=== PATIENT | female | born 1975 | race Caucasian/White ===

== ENCOUNTER 2019-01-22 14:15 | Emergency (ER) | payer BC ==
[~2019-01-22 14:15] MED LIST: Iopamidol 370 76% 100 ML VIAL ONE
[2019-01-22] MEDS ORDERED: Morphine 4 MG/ML VIAL ONE (14:59)
[2019-01-22] MEDS ORDERED: Sodium Chloride 0.9% 1,000 ML ONE ×2 (14:59→17:21)
[2019-01-22 15:04] LABS: #Basophils 0.1 thou/uL (0.0-0.2); #Eosinphils 0.2 thou/uL (0.0-0.7); #Lymphocytes 3.1 thou/uL (1.20-3.40); #Monocytes 0.5 thou/uL (0.11-0.59); #Neutrophils 4.4 thou/uL (1.40-6.50); %Basophils 0.9 % (0.0-1.0); %Eosinophils 2.3 % (0.0-10.0); %Monocytes 6.5 % (0.0-10.0); %Neutrophils 53.2 % (42.0-75.0); Mean Corpuscular Hemoglobin 30.8 pg (27.0-31.0); Mean Corpuscular Volume 93.4 fL (78.0-98.0); Mean Platelet Volume 6.4 fL (7.4-10.4); Platelet Count 239 thou/uL (130-400); RBC Distribution Width 12.6 % (11.5-14.5); Red Blood Cell (RBC) Count 3.89 mill/uL (4.20-5.40); White Blood Cell (WBC) Count 8.3 thou/uL (4.8-10.8)
[2019-01-22 15:07] LABS: Bilirubin Negative (Negative); Blood, Urine Trace (Negative); Clarity Hazy (Clear); Glucose, Urine (Dipstick) Negative (Negative); Leukocyte Negative (Negative); Nitrite Negative (Negative); Protein, Urine (Dipstick) Negative (Neg-Trace); Urobilinogen 0.2 mg/dL (Less than 2)
[2019-01-22 15:09] LABS: Bacteria/HPF Rare-Few HPF (None Seen); RBC/HPF 0-3 HPF (0-3); Squamous Epithelial 0-3 HPF (0-3); WBC/HPF 0-3 HPF (0-3)
[2019-01-22 15:19] LABS: ALT (SGPT) 28 U/L (8-55); AST (SGOT) 21 U/L (5-34); Alkaline Phosphatase 56 U/L (40-150); Anion Gap 13 mmol/L (10-20); BUN (Urea Nitrogen) 16 mg/dL (7.0-18.7); Bilirubin, Total 0.2 mg/dL (0.2-1.2); Calc. Creatinine Clearance 0 mL/min (70-130); Calcium 8.9 mg/dL (7.8-10.44); Carbon Dioxide 25 mmol/L (22-29); Chloride 108 mmol/L (98-107); Estimated GFR-MDRD 89; Globulin 2.3 g/dL (2.4-3.5); Glucose 77 mg/dL (70-105); Magnesium 1.9 mg/dL (1.6-2.6); Potassium 3.7 mmol/L (3.5-5.1); Protein, Total 6.3 g/dL (6.0-8.3); Sodium 142 mmol/L (136-145)
--- NOTE | 2019-01-22 16:03 | RAD ---
ABDOMEN ONE VIEW: HISTORY: Abdominal pain and distention and fever. COMPARISON: None. FINDINGS: On the upright view, no free air under the hemidiaphragms. No dilated air-filled loops of large or s mall bowel. There are right upper quadrant surgical clips. No abnormal calcification projected over the renal shadows. No acute osseous abnormality. IMPRESSION: No acute radiographic abnormality. POS: CET
--- NOTE | 2019-01-22 17:13 | CT ---
CT ABDOMEN WITH CONTRAST CT PELVIS WITH CONTRAST: DATE: 01/22/2019 HISTORY: 43-year-old female with generalized abdominal pain, fever, nausea, and abdominal distention. TECHNIQUE: IV injection of iodinated contrast media: Administered Oral contrast media:Not administered FINDINGS: Liver: No focal solid mass. Spleen: No splenomegaly.. Pancreas: No mass or surrounding fat stranding.. Adrenals: No mass.. Kidneys: No hydronephrosis or enhancement abnormalities.. Ureters: No dilation. Bladder: No pathology identified. Abdominal aorta: No aneurysm. Small bowel: No dilation. Colon: No adjacent fat stranding. Appendix: No dilation or adjacent fat stranding.. Free air: None. Free fluid: Tiny amount in the pelvic cavity Surgical clips in the gallbladder fossa. Surgical clip in right lower quadrant peritoneal cavity. Suture line at rectum. Uterus: Surgically absent IMPRESSION: 1. No major pathology identified.. 2. Status post hysterectomy, cholecystectomy, and partial colectomy at rectum.
[2019-01-22] MEDS ORDERED: Ketorolac Tromethamine 30 MG/ML VIAL ONE (17:21)
== END 2019-01-22 18:08 | disposition home or self-care (01) ==
LOC: MADERS 14:15
DX: B34.9 Viral infection, unspecified (principal)
CPT/HCPCS: 74018; 74177; 80053; 81003; 81015; 83605; 83735; 85025; 87086; 87804; 96361; 96374; 96375; J1885; J2270; J7050; Q9967

== ENCOUNTER 2024-01-08 14:11 | Emergency (ER) | payer BC ==
[2024-01-08] MEDS ORDERED: Lidocaine 1% w/Epinephrine 1:100K 20 ML VIAL ONE (14:57)
[2024-01-08] MEDS ORDERED: Bacitracin 1 PK ONE (14:57)
[2024-01-08] MEDS ORDERED: Boostrix 0.5 ML (Tdap) VIAL (>/=7 yrs of age) ONE (14:57)
[2024-01-08] MEDS ORDERED: HYDROcodone/Acetaminophen 10/325 mg Tablet ONE (15:15)
== END 2024-01-08 16:20 | disposition home or self-care (01) ==
LOC: MADERS 14:11
DX: S81.812A Laceration without foreign body, left lower leg, initial encounter (principal); Z23 Encounter for immunization; W26.9XXA Contact with unspecified sharp object(s), initial encounter
CPT/HCPCS: 12002; 90471; 90715